=== PATIENT | female | born 1930 | race Caucasian/White ===

== ENCOUNTER → 2017-01-12 | Outpatient (REF) ==
[~2017-01-12] MED LIST: AMBIEN CR 12.12.5 MG PO; ARICEPT10 MG PO; BYSTOLIC5 MG PO; CELEXA 20MG20 MG/TAB PO; LAMICTAL 100MG100 MG PO; PEPCID 20MG TAB20 MG PO; PLAVIX 75MG TAB75 MG PO; REMERON 15M15 MG/TA1 PO; RISPERDAL 0.5M0.5 MG PO; SYNTHROID0.075 MG/T PO; SYSTANE 0.4%-0.15 ML OP; TYLENOL 500MG500 MG PO; ZOCOR 20MG20 MG PO; ZYPREXA 5MG5 MG PO
== END ==
LOC: ZLAB.WCH 12:38
DX: Z01.89 Encounter for other specified special examinations (principal)

== ENCOUNTER → 2017-01-13 | Outpatient (REF) | LOC: ZLAB.WCH 12:01 | DX: Z01.89 Encounter for other specified special examinations (principal) ==

== ENCOUNTER → 2017-02-11 | Outpatient (REF) | LOC: ZLAB.WCH 12:56 | DX: Z01.89 Encounter for other specified special examinations (principal) ==

== ENCOUNTER → 2018-01-31 | Outpatient (REF) | LOC: ZLAB.WCH 08:43 | DX: Z01.89 Encounter for other specified special examinations (principal) ==

== ENCOUNTER → 2018-02-16 | Outpatient (REF) | LOC: ZLAB.WCH 17:59 | DX: Z01.89 Encounter for other specified special examinations (principal) ==